=== PATIENT | male | born 1960 | race African-American/Black ===

== ENCOUNTER → 2019-05-14 | Outpatient (CLI) | payer OTHER ==
[~2019-05-14] MED LIST: BUPR1FIL5 SL; CHLO25TA9 PO; LISI10TA2 PO; MIRT30TA93 PO; OLAN20TA15 PO; SILD50TA PO; TAMS0.4C97 PO; TRAM50TA PO; TRAZ150T49 PO
[2019-05-14 11:58] VITALS: BP 134/80
== END | disposition home or self-care (01) ==
LOC: SURG 11:40
PROVIDERS: ATTEND Anesthesiology Pain Medicine
DX: M54.16 Radiculopathy, lumbar region (principal)
CPT/HCPCS: 99203

== ENCOUNTER → 2021-01-02 | Outpatient (CLI) | payer OTHER ==
[2019-05-14 11:58] VITALS: BP 134/80
[~2021-01-02] MED LIST changes: +LISI10TA16 PO; -LISI10TA2 PO
--- NOTE | 2021-01-02 22:30 | RAD ---
CLINICAL HISTORY: Reason: LEFT TESTICLE PAIN/SWELLING / Spl. Instructions: / History: COMPARISON: None available. TECHNIQUE: Ultrasound images of the scrotum was performed with dye-scale and color doppler. FINDINGS: The right testis measures 4.4 x 2.2 x 1.7 cm. The left testis measures 4.0 x 2.4 x 1.4 cm. There is no intratesticular abnormality. Testicular vascularity is symmetric and within normal limit s. The epididymis is normal in appearance bilaterally. Left-sided varicocele. IMPRESSION: 1. Normal sonographic appearance of the testicles. No evidence for torsion. 2. Left-sided varicocele. Electronically signed by: Shashank Smith MD (01/02/2021 10:28 PM) [facility]
== END ==
LOC: US 21:29
PROVIDERS: ATTEND Neuromusculoskeletal Medicine & OMM
DX: I86.1 Scrotal varices (principal); N44.8 Other noninflammatory disorders of the testis
CPT/HCPCS: 76870